=== PATIENT | male | born 1985 | race Caucasian/White ===

== ENCOUNTER 2024-06-17 14:15 | Inpatient (IN) | payer SELFPAY ==
[~2024-06-17] VITALS: Ht 193 cm; Wt 83.9 kg
[2024-06-17] VITALS (19 sets, daily range): BP systolic 91–115; BP diastolic 51–91; PULSE 114–165; RESP 10–33; TEMP 98–98.6; O2SAT 95–100
[2024-06-17 14:51] LABS: BASOPHILS # (AUTO) 0.2 (0.0-0.1); BASOPHILS % 1.2 % (0.0-1.0); HEMATOCRIT 23.5 % (38.2-49.6); HEMOGLOBIN 7.6 g/dL (14.0-18.0); LYMPHOCYTES # (AUTO) 0.9 (1.0-3.2); LYMPHOCYTES % 7.8 % (18.0-39.1); MEAN CORPUSCULAR HEMOGLOBIN 32.8 pg (28-32); MEAN CORPUSCULAR HGB CONC 32.3 g/dL (31-35); MEAN CORPUSCULAR VOLUME 101.3 fL (81-99); MONOCYTES # (AUTO) 1.5 (0.2-0.8); MONOCYTES % 12.1 % (4.4-11.3); NEUTROPHILS # (AUTO) 9.4 (2.1-6.9); NEUTROPHILS % 78.5 % (38.7-80.0); PLATELET COUNT 117 x10e3/uL (140-360); RED BLOOD COUNT 2.32 x10e6/uL (4.3-5.7); WHITE BLOOD COUNT 12.02 x10e3/uL (4.8-10.8)
[2024-06-17 14:56] LABS: INR 1.8; PROTHROMBIN TIME 21.8 seconds (11.9-14.5)
[2024-06-17 15:05] LABS: ALANINE AMINOTRANSFERASE 52 IU/L (0-55); ALBUMIN 3.7 g/dL (3.5-5.0); ALBUMIN/GLOBULIN RATIO 1.2 (0.8-2.0); ALKALINE PHOSPHATASE 83 IU/L (40-150); ANION GAP 16.8 mmol/L (8-16); BILIRUBIN,TOTAL 7.8 mg/dL (0.2-1.2); BLOOD UREA NITROGEN 24 mg/dL (7-26); BUN/CREATININE RATIO 35 (6-25); CARBON DIOXIDE 21 mmol/L (22-29); CHLORIDE 102 mmol/L (98-107); CREATINE KINASE 86 IU/L (30-200); CREATININE, SERUM 0.68 mg/dL (0.72-1.25); EST GLOMERULAR FILTRATION RATE 121 ML/MIN (>=60); GLUCOSE 132 mg/dL (74-118); LIPASE 65 U/L (8-78); MAGNESIUM 1.6 MG/DL (1.3-2.1); POTASSIUM 3.8 mmol/L (3.5-5.1); SODIUM 136 mmol/L (136-145); TOTAL PROTEIN 6.9 g/dL (6.5-8.1)
[2024-06-17] MEDS: SODIUM CHLORIDE 0.9% 1000ML 1,000 ML IV STA (15:13)
[2024-06-17 15:14] LABS: TROPONIN I < 0.05 ng/mL (0.0-0.40)
[2024-06-17] MEDS: OCTREOTIDE ACETATE 0.05 MG/ML AMP IV STA (15:14)
[2024-06-17] MEDS: ONDANSETRON HCL INJ 2MG/ML 2ML 2 MG/ML VIAL IV STA (15:14)
[2024-06-17] MEDS: OCTREOTIDE ACETATE 500 MCG in SODIUM CHLORIDE 0.9% 250ML 250 ML IV SCH (15:15)
[2024-06-17] MEDS: PHYTONADIONE 10 MG/ML AMP PO ONE (16:27)
[2024-06-17] MEDS: DILTIAZEM HCL 5 MG/ML 5 ML VIAL IV STA (16:27)
[2024-06-17] MEDS: LORAZEPAM INJ 2 MG/ML VIAL IV ONE ×2 (16:27→17:17)
[2024-06-17] MEDS: AMIODARONE 900MG 500 ML IV SCH ×2 (17:12→17:18)
[2024-06-17] MEDS: AMIODARONE HCL 150 MG/100 ML BAG IV ONE (17:16)
[2024-06-17] MEDS: DIGOXIN INJ 0.25 MG/ML 2 ML AMP IV ONE (18:22)
[2024-06-17] MEDS ORDERED: ACETAMINOPHEN 650 MG SUPP PR PRN ×2 (19:15)
[2024-06-17] MEDS ORDERED: OCTREOTIDE ACETATE 500 MCG in SODIUM CHLORIDE 0.9% 250ML 249 ML IV SCH (19:15)
[2024-06-17] MEDS ORDERED: MAGNESIUM/ALUMINUM/SIMETHICONE 30 ML UDC PO PRN (19:15)
[2024-06-17] MEDS ORDERED: GUAIFENESIN/DEXTROMETHORPHAN LIQD 5 ML UDC PO PRN (19:15)
[2024-06-17] MEDS ORDERED: HYDRALAZINE HCL 20 MG/ML VIAL IV PRN (19:15)
[2024-06-17] MEDS ORDERED: MELATONIN 3 MG TAB PO PRN (19:15)
[2024-06-17] MEDS ORDERED: ACETAMINOPHEN 325 MG TAB PO PRN (19:15)
[2024-06-17] MEDS ORDERED: LORAZEPAM INJ 2 MG/ML VIAL IV PRN (19:15)
[2024-06-17] MEDS ORDERED: ONDANSETRON HCL INJ 2MG/ML 2ML 2 MG/ML VIAL IV PRN ×2 (19:15)
[2024-06-17] MEDS ORDERED: METOPROLOL TARTRATE INJ 1 MG/ML VIAL IV PRN (19:45)
[2024-06-17] MEDS: SODIUM CHLORIDE 0.9% 1000ML 1,000 ML IV SCH (19:46)
[2024-06-17] MEDS: MAGNESIUM SULFATE 2GM/50ML 50 ML IV ONE (19:46)
[2024-06-17] MEDS ORDERED: SODIUM CHLORIDE 0.9% 250ML 250 ML ONE (20:22)
[2024-06-17] MEDS: SODIUM CHLORIDE 0.9% 250ML 250 ML IV ONE (20:38)
[2024-06-17] MEDS: PHYTONADIONE 10 MG/ML AMP IV ONE (22:33)
[2024-06-18] VITALS (50 sets, daily range): BP systolic 89–125; BP diastolic 47–86; PULSE 66–120; RESP 14–23; TEMP 98–99.3; O2SAT 96–100
[2024-06-18] MEDS ORDERED: OCTREOTIDE ACETATE 500 MCG in SODIUM CHLORIDE 0.9% 250ML 250 ML IV SCH (02:30)
[2024-06-18] MEDS: METOCLOPRAMIDE HCL 10 MG/2ML VIAL IV SCH (05:23)
[2024-06-18 06:26] LABS: BASOPHILS # (AUTO) 0.2 (0.0-0.1); BASOPHILS % 1.5 % (0.0-1.0); EOSINOPHILS # (AUTO) 0.2 (0.0-0.4); EOSINOPHILS % 1.9 % (0.0-6.0); HEMATOCRIT 25.4 % (38.2-49.6); HEMOGLOBIN 8.4 g/dL (14.0-18.0); LYMPHOCYTES # (AUTO) 1.1 (1.0-3.2); LYMPHOCYTES % 10.3 % (18.0-39.1); MEAN CORPUSCULAR HEMOGLOBIN 32.3 pg (28-32); MEAN CORPUSCULAR HGB CONC 33.1 g/dL (31-35); MEAN CORPUSCULAR VOLUME 97.7 fL (81-99); MONOCYTES # (AUTO) 1.4 (0.2-0.8); MONOCYTES % 12.7 % (4.4-11.3); NEUTROPHILS % 73.1 % (38.7-80.0); PLATELET COUNT 81 x10e3/uL (140-360); RED CELL DISTRIBUTION WIDTH 17.3 % (11.7-14.4)
[2024-06-18 06:42] LABS: INR 1.62
[2024-06-18 06:43] LABS: PARTIAL THROMBOPLASTIN TIME 38.7 seconds (23.8-35.5)
[2024-06-18 06:44] LABS: ALBUMIN 3.4 g/dL (3.5-5.0); ALBUMIN/GLOBULIN RATIO 1.2 (0.8-2.0); ANION GAP 12.8 mmol/L (8-16); BILIRUBIN,TOTAL 9.5 mg/dL (0.2-1.2); CALCIUM 8.7 mg/dL (8.4-10.2); CREATININE, SERUM 0.64 mg/dL (0.72-1.25); POTASSIUM 3.8 mmol/L (3.5-5.1); TOTAL PROTEIN 6.2 g/dL (6.5-8.1)
[2024-06-18] MEDS ORDERED: SODIUM CHLORIDE 0.9% 1000ML 1,000 ML IV SCH (08:30)
[2024-06-18 08:58] LABS: CREATINE KINASE 66 IU/L (30-200)
[2024-06-18] MEDS ORDERED: PHYTONADIONE 10 MG/ML AMP SQ SCH (09:00)
[2024-06-18] MEDS ORDERED: THIAMINE HCL 100 MG TAB PO SCH (09:00)
[2024-06-18 11:01] LABS: TROPONIN I < 0.05 ng/mL (0.0-0.40)
[2024-06-18] MEDS ORDERED: PHYTONADIONE 10 MG/ML AMP IV ONE (11:15)
[2024-06-18] MEDS: THIAMINE HCL INJ 100 MG/ML 2ML VIAL IV SCH (12:01)
[2024-06-18] MEDS: MULTIVITAMINS/MINERALS TAB PO SCH (12:01)
[2024-06-18] MEDS: PHYTONADIONE 10MG/ML INJ 20 MG in Sodium Chloride 0.9% 50ML 50 ML IV ONE (12:03)
[2024-06-18 12:38] LABS: TROPONIN I 0.009 ng/mL (0-0.300)
[2024-06-18 14:19] LABS: BASOPHILS # (AUTO) 0.1 (0.0-0.1); BASOPHILS % 1.5 % (0.0-1.0); EOSINOPHILS # (AUTO) 0.2 (0.0-0.4); EOSINOPHILS % 1.9 % (0.0-6.0); HEMATOCRIT 26.9 % (38.2-49.6); HEMOGLOBIN 8.7 g/dL (14.0-18.0); LYMPHOCYTES % 10.3 % (18.0-39.1); MEAN CORPUSCULAR HEMOGLOBIN 31.6 pg (28-32); MEAN CORPUSCULAR HGB CONC 32.3 g/dL (31-35); MEAN CORPUSCULAR VOLUME 97.8 fL (81-99); MONOCYTES # (AUTO) 1.3 (0.2-0.8); MONOCYTES % 13.3 % (4.4-11.3); NEUTROPHILS % 72.6 % (38.7-80.0); PLATELET COUNT 80 x10e3/uL (140-360); RED BLOOD COUNT 2.75 x10e6/uL (4.3-5.7); RED CELL DISTRIBUTION WIDTH 18.2 % (11.7-14.4); WHITE BLOOD COUNT 9.65 x10e3/uL (4.8-10.8)
[2024-06-18] MEDS: PROPRANOLOL HCL 10 MG TAB PO SCH (16:40)
[2024-06-18] MEDS: AMIODARONE HCL 200 MG TAB PO SCH (16:53)
[2024-06-18 19:11] LABS: HEPATITIS B SURFACE AG (P) Non Reaction
[2024-06-18 19:12] LABS: HEPATITIS C ANTIBODY Non Reaction
[2024-06-18] MEDS: LORAZEPAM INJ 2 MG/ML VIAL IV PRN (20:48)
[2024-06-19] VITALS (19 sets, daily range): BP systolic 95–154; BP diastolic 56–94; PULSE 47–62; RESP 12–20; TEMP 97.8–98.6; O2SAT 99–100
[2024-06-19] MEDS: OCTREOTIDE ACETATE 500 MCG in SODIUM CHLORIDE 0.9% 250ML 250 ML IV SCH (02:06)
[2024-06-19 06:46] LABS: INR 1.63; PROTHROMBIN TIME 20.1 seconds (11.9-14.5)
[2024-06-19 06:47] LABS: PARTIAL THROMBOPLASTIN TIME 34.6 seconds (23.8-35.5)
[2024-06-19 06:52] LABS: BASOPHILS % 0.5 % (0.0-1.0); EOSINOPHILS # (AUTO) 0.3 (0.0-0.4); EOSINOPHILS % 4.4 % (0.0-6.0); HEMATOCRIT 24.8 % (38.2-49.6); LYMPHOCYTES # (AUTO) 1.2 (1.0-3.2); MEAN CORPUSCULAR HEMOGLOBIN 32.7 pg (28-32); MEAN CORPUSCULAR HGB CONC 32.3 g/dL (31-35); MEAN CORPUSCULAR VOLUME 101.2 fL (81-99); MONOCYTES # (AUTO) 1.1 (0.2-0.8); MONOCYTES % 16.5 % (4.4-11.3); NEUTROPHILS % 60.3 % (38.7-80.0); PLATELET COUNT 77 x10e3/uL (140-360); RED BLOOD COUNT 2.45 x10e6/uL (4.3-5.7); RED CELL DISTRIBUTION WIDTH 18.2 % (11.7-14.4); WHITE BLOOD COUNT 6.55 x10e3/uL (4.8-10.8)
[2024-06-19] MEDS: SODIUM CHLORIDE 0.9% 1000ML 1,000 ML IV SCH (08:03)
[2024-06-19] MEDS ORDERED: FENTANYL CITRATE/PF 100MCG/2 ML INJ ONE (11:24)
[2024-06-19] MEDS ORDERED: PROPOFOL IV EMULSION 10 MG/ML 50 ML VIAL IV ONE (11:48)
[2024-06-19] MEDS ORDERED: EPHEDRINE SULFATE INJ 50 MG/ML VIAL ONE (11:48)
[2024-06-19] MEDS ORDERED: LIDOCAINE HCL 2% LOCAL INJ 5 ML SDV VIAL INJ ONE (11:48)
[2024-06-20] VITALS: BP 112/75; PULSE 61; RESP 14; O2SAT 100
[2024-06-20 04:00] VITALS: BP 112/68; PULSE 54; RESP 16; TEMP 98.1; O2SAT 96
== END 2024-06-20 08:29 | disposition left against medical advice (07) | DRG 432 ==
LOC: ER 14:31 → ERHOLD 15:46 → ICU 17:50
PROVIDERS: ADMIT Internal Medicine; ATTEND Internal Medicine
PROC: 30233N1 Transfusion of Nonautologous Red Blood Cells into Peripheral Vein, Percutaneous Approach (ICD-10-PCS; 2024-06-17)
PROC: 30233K1 Transfusion of Nonautologous Frozen Plasma into Peripheral Vein, Percutaneous Approach (ICD-10-PCS; 2024-06-17)
PROC: 30233N1 Transfusion of Nonautologous Red Blood Cells into Peripheral Vein, Percutaneous Approach (ICD-10-PCS; 2024-06-18)
PROC: 06L38CZ Occlusion of Esophageal Vein with Extraluminal Device, Via Natural or Artificial Opening Endoscopic (ICD-10-PCS; principal; 2024-06-19 15:41)
DX: K70.30 Alcoholic cirrhosis of liver without ascites (principal); I85.11 Secondary esophageal varices with bleeding; D68.9 Coagulation defect, unspecified; K76.6 Portal hypertension; D50.0 Iron deficiency anemia secondary to blood loss (chronic); D69.59 Other secondary thrombocytopenia; F10.10 Alcohol abuse, uncomplicated; K31.89 Other diseases of stomach and duodenum; I48.0 Paroxysmal atrial fibrillation; R00.0 Tachycardia, unspecified; Z11.52 Encounter for screening for COVID-19; Z53.29 Procedure and treatment not carried out because of patient's decision for other reasons
CPT/HCPCS: 36415; 43255; 71045; 80053; 82550; 83690; 83735; 84443; 84484; 85025; 85610; 85730; 86850; 86900; 86920; 93005; 94760; 99252; 99285; J1160; J2001; J2060; J2353; J2354; J2405; J2470; J2765; J3411; J3430; J3475; J7030; J7050; P9016; P9017; U0002

== ENCOUNTER 2024-07-20 03:32 | Emergency (ER) | payer SELFPAY ==
[~2024-07-20] VITALS: Ht 193 cm; Wt 83.9 kg
[2024-07-20 03:35] VITALS: TEMP 97.8
[2024-07-20] MEDS ORDERED: SODIUM CHLORIDE 0.9% 1000ML 2,000 ML ONE (03:48)
[2024-07-20] MEDS ORDERED: LORAZEPAM INJ 2 MG/ML VIAL ONE (03:56)
[2024-07-20] MEDS: ONDANSETRON HCL INJ 2MG/ML 2ML 2 MG/ML VIAL IV STA (03:59)
[2024-07-20] MEDS: LORAZEPAM INJ 2 MG/ML VIAL IV ONE ×3 (03:59→08:58)
[2024-07-20] MEDS: SODIUM CHLORIDE 0.9% 1000ML 1,000 ML IV ONE ×3 (03:59→05:52)
[2024-07-20 04:28] LABS: BASOPHILS # (AUTO) 0.1 (0.0-0.1); BASOPHILS % 1.1 % (0.0-1.0); HEMOGLOBIN 8.3 g/dL (14.0-18.0); LYMPHOCYTES # (AUTO) 1.1 (1.0-3.2); LYMPHOCYTES % 10.7 % (18.0-39.1); MEAN CORPUSCULAR HEMOGLOBIN 31.4 pg (28-32); MEAN CORPUSCULAR HGB CONC 30.7 g/dL (31-35); MEAN CORPUSCULAR VOLUME 102.3 fL (81-99); MONOCYTES # (AUTO) 1.3 (0.2-0.8); MONOCYTES % 12.4 % (4.4-11.3); NEUTROPHILS # (AUTO) 7.9 (2.1-6.9); NEUTROPHILS % 75.4 % (38.7-80.0); PLATELET COUNT 160 x10e3/uL (140-360); RED BLOOD COUNT 2.64 x10e6/uL (4.3-5.7); RED CELL DISTRIBUTION WIDTH 17.2 % (11.7-14.4); WHITE BLOOD COUNT 10.47 x10e3/uL (4.8-10.8)
[2024-07-20 04:42] LABS: INR 1.81; PARTIAL THROMBOPLASTIN TIME 42.2 seconds (23.8-35.5); PROTHROMBIN TIME 21.9 seconds (11.9-14.5)
[2024-07-20 04:47] LABS: ALBUMIN 3.8 g/dL (3.5-5.0); ALBUMIN/GLOBULIN RATIO 1.1 (0.8-2.0); ANION GAP 26.6 mmol/L (8-16); BILIRUBIN,TOTAL 8.3 mg/dL (0.2-1.2); CALCIUM 9.3 mg/dL (8.4-10.2); CREATININE, SERUM 0.66 mg/dL (0.72-1.25); POTASSIUM 3.6 mmol/L (3.5-5.1); TOTAL PROTEIN 7.3 g/dL (6.5-8.1)
[2024-07-20 05:11] LABS: MAGNESIUM 1.3 MG/DL (1.3-2.1); PHOSPHORUS 3.1 MG/DL (2.3-4.7)
[2024-07-20] MEDS: DIGOXIN INJ 0.25 MG/ML 2 ML AMP IV ONE (05:52)
[2024-07-20] MEDS: MULTIVITAMINS- 12 INJECTION 10 ML, FOLIC ACID MDV 1 MG, THIAMINE HCL INJ 100 MG in SODI... IV ONE (05:58)
[2024-07-20] MEDS: OCTREOTIDE ACETATE 0.05 MG/ML AMP IV STA (07:36)
[2024-07-20] MEDS: OCTREOTIDE ACETATE 600 MCG in SODIUM CHLORIDE 0.9% 250ML 300 ML IV SCH (07:37)
[2024-07-20 08:45] VITALS: PULSE 112; RESP 12; O2SAT 99
[2024-07-21] MEDS ORDERED: IOPAMIDOL 370 MG/ML 100 ML INFUS..BTL INJ ONE (00:31)
[2024-07-21] MEDS ORDERED: SODIUM CHLORIDE 0.9% 100 ML ONE (00:32)
== END 2024-07-20 09:02 | disposition other institution (70) ==
LOC: ER 03:35
DX: R11.2 Nausea with vomiting, unspecified (principal); K74.60 Unspecified cirrhosis of liver; F10.239 Alcohol dependence with withdrawal, unspecified; I48.20 Chronic atrial fibrillation, unspecified; D64.9 Anemia, unspecified; D68.9 Coagulation defect, unspecified
CPT/HCPCS: 36415; 71045; 74174; 80053; 83605; 83690; 83735; 84100; 84484; 85025; 85610; 85730; 86850; 86900; 87040; 93005; 99284; J1160; J2060; J2353; J2354; J2405; J2470; J3411; J7030; J7050 ×2; Q9967